=== PATIENT | female | born 1980 ===

== ENCOUNTER 2019-03-13 18:03 | Emergency (ER) | payer SELFPAY ==
[2019-03-13 18:05] VITALS: BP 139/96; PULSE 105; RESP 17; TEMP 36.4; O2SAT 100; BMI 31.0
== END 2019-03-13 20:31 | disposition left against medical advice (07) ==
LOC: ED 20:27
PROVIDERS: Emergency Provider Emergency Medicine
DX: R69 Illness, unspecified (principal); Z53.21 Procedure and treatment not carried out due to patient leaving prior to being seen by health care provider